=== PATIENT | male | born 1985 | race Two or more races ===

== ENCOUNTER → 2017-10-25 | Outpatient (CLI) | payer BC ==
--- NOTE | 2017-10-25 15:34 | RAD ---
4 views of the lumbar spine Indication: Low back pain. Comparison study: Lumbar spine radiographs September 14, 2010 Discussion: No evidence of acute fracture or alignment abnormality is identified. There is diffuse mild degenerative disc space narrowing throughout the visualized lumbar spine. There is grade 1 retrolisthesis of L4 on L5 in the neutral position. Mild facet arthrosis appears to be present inferiorly. No evidence of spondylolysis is appreciated. Findings are somewhat prominent for age. Impression: Degenerative changes of the lumbar spine as described without evidence of acute osseous abnormality.
== END | disposition home or self-care (01) ==
LOC: DXRAD 14:43
PROVIDERS: ATTEND Nurse Practitioner Adult Health
DX: M47.896 Other spondylosis, lumbar region (principal); M48.061 Spinal stenosis, lumbar region without neurogenic claudication
CPT/HCPCS: 72100

== ENCOUNTER → 2017-11-08 | Outpatient (CLI) | payer BC ==
[~2017-11-08] MED LIST: IOHEXOL 240 MG/ML 50ML VIAL. ONE; IOHEXOL 300 MG/ML 50 ML VIAL. IV ONE
--- NOTE | 2017-11-08 13:08 | RAD ---
CT of the abdomen and pelvis with IV and oral contrast 11/08/2017 Indication: Left lower quadrant pain x1 week. Bloating. Gas. Comparison study: None available. Technique: Multidetector CT imaging of the abdomen and pelvis is obtained following the administration of IV and enteric contrast. There is a smoothly marginated ovoid nodule in the basilar right lower lobe measuring 1.8 cm in diameter (axial image 21). There is a 2 to 3 mm noncalcified nodule in the inferior left upper lobe (axial image 5). The liver is diffusely low in attenuation suggesting hepatic steatosis. Liver is otherwise unremarkable. Prior cholecystectomy is noted. Spleen is top normal in size. Adrenal glands are unremarkable. Pancreas is grossly unremarkable. The kidneys are unremarkable. There is no evidence of bowel obstruction. No evidence of acute inflammatory change involving the visualized bowel is identified. The appendix is unremarkable in appearance the bladder is predominantly decompressed but otherwise grossly unremarkable. No free fluid or free air seen in the abdomen or pelvis. No evidence of acute osseous abnormality is identified. Impression: 1. 1.8 cm noncalcified rounded nodule in the basal right lower lobe. 3 mm noncalcified nodule, inferior left upper . Consider CT of the chest for evaluation of pulmonary nodules. Otherwise recommend stratification based on risk factors and CT surveillance as described below . 2. No CT evidence of acute intra-abdominal abnormality 3. Hepatic steatosis PQRS Compliance Statement: One or more of the following individualized dose reduction techniques were utilized for this examination: 1. Automated exposure control 2. Adjustment of the mA and/or kV according to patient size 3. Use of iterative reconstruction technique Fleischner society pulmonary nodule recommendations 2017 guidelines Solid nodules Solitary nodule size: <6 mm low risk patients: no follow-up needed high risk patients: optional CT at 12 months Solitary nodule size: 6-8 mm low risk patients: follow-up at 6-12 months, then consider further follow-up at 18-24 months high risk patients: initial follow-up CT at 6-12 months and then at 18-24 months if no change Solitary nodule size: >8 mm either low or high risk patients consider follow-up CT at 3 months, and/or CT-PET, and/or biopsy Multiple nodules size: <6 mm low risk patients: no routine follow-up high risk patients: optional CT at 12 months Multiple nodules size: 6-8 mm low risk patients: follow-up at 3-6 months, then consider further follow-up at 18-24 months high risk patients: follow-up at 3-6 months, then at 18-24 months if no change Multiple nodules size: >8 mm low risk patients: follow-up at 3-6 months, then consider further follow-up at 18-24 months high risk patients: follow-up at 3-6 months, then at 18-24 months if no change Note: newly detected indeterminate nodule in persons 35 years of age or older. Low risk patients: minimal or absent history of smoking and or other known risk factors high risk patients: history of smoking or of other known risk factors (e.g. first degree relative with lung cancer, or exposure to asbestos, radon, uranium) nodule up to 8 mm is partly solid or is ground glass further follow-up is required after 24 months to exclude possible slow growing adenocarcinoma (NEGRA)
== END | disposition home or self-care (01) ==
LOC: CT 07:47
PROVIDERS: ATTEND Nurse Practitioner Adult Health
DX: K76.0 Fatty (change of) liver, not elsewhere classified (principal); R91.8 Other nonspecific abnormal finding of lung field; I10 Essential (primary) hypertension
CPT/HCPCS: 74177; Q9966; Q9967

== ENCOUNTER → 2017-11-15 | Outpatient (CLI) | payer BC ==
[~2017-11-15] MED LIST changes: -IOHEXOL 240 MG/ML 50ML VIAL. ONE; -IOHEXOL 300 MG/ML 50 ML VIAL. IV ONE; +IOHEXOL 300 MG/ML 75 ML VIAL. IV ONE
--- NOTE | 2017-11-15 13:58 | RAD ---
CT chest with contrast 11/15/2017 Clinical indication: Pulmonary nodules. COMPARISON: CT abdomen and pelvis 11/08/2017 TECHNIQUE: Multiple CT images of the chest were obtained following intravenous administration of 100 mL Omnipaque 300. *One or more of the following individualized dose reduction techniques were utilized for this examination: 1. Automated exposure control. 2. Adjustment of the mA and/or kV according to patient size. 3. Use of iterative reconstruction technique. FINDINGS: Heart size is normal without giving pericardial effusion. The thoracic aorta is normal in caliber. There is residual thymic tissue in the anterior mediastinum. No axillary, mediastinal or hilar lymphadenopathy. The central airways are patent. No no pleural effusion or pneumothorax. There is a stable 1.6 cm noncalcified nodule in the posterior basilar right lower lobe series 4/image 180. No additional noncalcified pulmonary nodules. There are no destructive osseous lesions. Limited images of the upper abdomen: Hepatic steatosis. Prior cholecystectomy. IMPRESSION: 1. Stable solitary noncalcified nodule measuring 1.6 cm in the posterior right lower lobe, indeterminate. PET/CT or percutaneous biopsy is recommended for further evaluation. 2. No other pulmonary nodules or thoracic lymphadenopathy. 3. Hepatic steatosis. Electronically signed by: Jaspal Keen MD (11/15/2017 1:55 PM) [id number]
== END | disposition home or self-care (01) ==
LOC: CT 07:46
PROVIDERS: ATTEND Nurse Practitioner Adult Health
DX: R91.8 Other nonspecific abnormal finding of lung field (principal); K76.0 Fatty (change of) liver, not elsewhere classified; Z90.49 Acquired absence of other specified parts of digestive tract
CPT/HCPCS: 71260; Q9967

== ENCOUNTER → 2018-02-14 | Outpatient (CLI) | payer BC ==
--- NOTE | 2018-02-14 10:45 | RAD ---
CT CHEST WO CONTRAST Indication: FOLLOW UP LUNG NODULE IN RIGHT LOWER LOBE Exposure: One or more of the following individualized dose reduction techniques were utilized for this examination: 1. Automated exposure control 2. Adjustment of the mA and/or kV according to patient size 3. Use of iterative reconstruction technique. Comparison: November 15, 2017 Contrast: None FINDINGS: Vascular structures: Limited exam without contrast. No evidence of thoracic aortic aneurysm. Lymph nodes:No significant enlargement Thyroid gland:Visualized aspect is unremarkable. Heart: No significant pericadial effusion. Esophagus: Unremarkable Pleural spaces: No significant effusion Lungs: Noncalcified nodule in the posterior right lower lobe measures 17 mm x 12 mm, series 2, image 261. Measures 17 mm x 12 mm on similar prior slice, with no interval change in appearance. Trachea and central airways: Patent Spine: Mild degenerative spondylosis Bones: No destructive process Upper abdomen: Slices obtained through the upper most abdomen are limited by the noncontrast technique. Hepatic steatosis. Impression: 1. Stable right lower lobe pulmonary nodule. 2. No acute findings in the chest. Electronically signed by: Cam Lozano MD (02/14/2018 10:41 AM) [id number]
== END | disposition home or self-care (01) ==
LOC: CT 10:04
PROVIDERS: ATTEND Internal Medicine Pulmonary Disease
DX: R91.1 Solitary pulmonary nodule (principal); K76.0 Fatty (change of) liver, not elsewhere classified; M47.894 Other spondylosis, thoracic region; I10 Essential (primary) hypertension; Z90.49 Acquired absence of other specified parts of digestive tract
CPT/HCPCS: 71250

== ENCOUNTER → 2018-09-25 | Outpatient (CLI) | payer BC ==
--- NOTE | 2018-09-25 10:50 | RAD ---
Two-view chest dated 09/25/2018. CT chest dated 02/14/2018. Clinical data indication: Productive cough for 24 hours. FINDINGS: PA and lateral views obtained. Heart and mediastinal contours within normal limits. Lungs are clear without focal consolidation. Vascular interstitium within normal limits. No pleural effusion or pneumothorax. Previously described nodular density in the right lower lobe is not well visualized based on technique but probably unchanged. IMPRESSION: 1. No acute radiographic abnormality. 2. Previously described right lower lobe pulmonary nodules not well visualized on today's exam but probably unchanged. Electronically signed by: Cam Wadr MD (09/25/2018 10:47 AM) [id number]
== END | disposition home or self-care (01) ==
LOC: RAD 10:25
PROVIDERS: ATTEND Nurse Practitioner Adult Health
DX: R06.02 Shortness of breath (principal); R05 Cough; R91.8 Other nonspecific abnormal finding of lung field
CPT/HCPCS: 71046

== ENCOUNTER → 2019-10-07 | Outpatient (CLI) | payer SELFPAY ==
[2019-10-07 19:45] LABS: BASO # 0.1 x10^3/uL (0.0-0.2); BASO % 1 % (0-3); EOS # 0.2 x10^3/uL (0.0-0.7); EOS % 2 % (0-3); HEMATOCRIT 44.7 % (39.0-53.0); HEMOGLOBIN 15.1 g/dL (13.0-17.5); LYMPH # 2.8 x10^3/uL (1.0-4.8); LYMPH % 25 % (24-48); MEAN CORPUSCULAR HEMOGLOBIN 29 pg (25-35); MEAN CORPUSCULAR HGB CONC 34 g/dL (31-37); MEAN CORPUSCULAR VOLUME 85 fL (79-100); MONO # 0.8 x10^3/uL (0.0-1.1); MONO % 7 % (0-9); NEUT # 7.5 x10^3uL (1.8-7.7); NEUT % 65 % (31-73); PLATELET COUNT 233 x10^3/uL (140-400); RED BLOOD COUNT 5.27 x10^6/uL (4.30-5.70); WHITE BLOOD COUNT 11.4 x10^3/uL (4.0-11.0)
[2019-10-07 20:04] LABS: C REACTIVE PROTEIN 4.7 mg/L (0-3.3); CALCIUM 8.9 mg/dL (8.5-10.1); CREATININE 0.8 mg/dL (0.7-1.3); POTASSIUM 3.6 mmol/L (3.5-5.1)
[2019-10-07 22:01] LABS: SEDIMENTATION RATE 12 (0-15)
== END | disposition home or self-care (01) ==
LOC: LAB 18:16
PROVIDERS: ATTEND Family Medicine
DX: L02.414 Cutaneous abscess of left upper limb (principal)
CPT/HCPCS: 36415; 80048; 85025; 85651; 86140

== ENCOUNTER 2021-07-18 11:18 | Emergency (ER) | payer SELFPAY ==
[~2021-07-18] VITALS: Ht 193 cm; Wt 203.1 kg
[2021-07-18] MEDS ORDERED: ACETAMINOPHEN 500 MG TABLET PO ONE (12:00)
[2021-07-18] MEDS ORDERED: IBUPROFEN 600 MG TABLET. PO ONE (12:00)
--- NOTE | 2021-07-18 12:06 | PHYS DOC ---
Past History Additional Past Medical Histor: obese Past Surgical History: Cholecystectomy, Other Additional Past Surgical Histo: ACL REPAIR RIGHT KNEE; LEFT ELBOW STAPH; RIGHT TESTICLE; LEFT ANKLE Alcohol Use: Rarely General Adult EDM: Chief Complaint: SHORTNESS OF BREATH HPI: HPI: Patient is a 35-year-old male who presents to the emergency department for shortness of breath that started last night. Patient was diagnosed with COVID- 19 last week. He is also reporting fevers, nonproductive cough, body aches and a headache. He rates his pain 4-10. No treatment prior to arrival. Patient denies any chest pain currently. Patient has a history of hypertension and obesity. Patient is mildly tachycardic in the emergency department but not hypoxic, he is febrile. Review of Systems: Review of Systems: 14 body systems of the review of systems have been reviewed. See HPI for pertinent positive and negative responses, otherwise all other systems are negative, nonpertinent or noncontributory Current Medications: Current Meds: Current Medications Medications (Trade) Dose Ordered Sig/Char Start Time Stop Time Status Last Admin Dose Admin Acetaminophen (Tylenol) 1,000 mg 1X ONCE 07/18/21 12:00 07/18/21 12:01 DC Ibuprofen (Motrin) 600 mg 1X ONCE 07/18/21 12:00 07/18/21 12:01 DC Allergies: Allergies: Allergies Coded Allergies Type Severity Reaction Last Updated Verified Penicillins Allergy Unknown Unknown 07/18/21 Yes Sulfa (Sulfonamide Antibiotics) Allergy Unknown Unknown 07/18/21 Yes Physical Exam: PE: Constitutional: Well developed, well nourished, no acute distress, non-toxic appearance. [] HENT: Normocephalic, atraumatic, bilateral external ears normal, oropharynx moist, no oral exudates, nose normal. [] Eyes: PERRL, EOMI, conjunctiva normal, no discharge. [] Neck: Normal range of motion, no tenderness, supple, no stridor. [] Cardiovascular:Heart rate tachycardic rhythm, no murmur [] Lungs & Thorax: Bilateral breath sounds clear to auscultation [] Abdomen: Bowel sounds normal, soft, no tenderness, no masses, no pulsatile masses. [] Skin: Warm, dry, no erythema, no rash. [] Back: Normal range of motion Extremities: No tenderness, no cyanosis, no clubbing, ROM intact, no edema. [] Neurologic: Alert and oriented X 3, normal motor function, normal sensory function, no focal deficits noted. [] Psychologic: Affect normal, judgement normal, mood normal. [] Current Patient Data: Vital Signs: Vital Signs Date Time Temp Pulse Resp B/P (MAP) Pulse Ox O2 Delivery O2 Flow Rate FiO2 07/18/21 11:54 100.1 105 17 152/92 (112) 93 Room Air EKG: EKG: [] Radiology/Procedures: Radiology/Procedures: []REASON: soa covid + PROCEDURE: PORTABLE CHEST 1V EXAMINATION: Chest radiograph. VIEWS: Single AP view of the chest COMPARISON: 09/25/2018 INDICATION:35 years, Male, shortness of air, Covid positive. FINDINGS: Normal cardiomediastinal silhouette. Patchy bibasilar opacities, slightly greater in the left. No pleural effusion or pneumothorax. No acute osseous process. IMPRESSION: Patchy bibasilar airspace opacities, consistent with known COVID pneumonia. Electronically signed by: Rox Castro DO (07/18/2021 12:23 PM) [id number] DICTATED AND SIGNED BY: ROX CASTRO DO DATE: 07/18/21 1221 CC: DARRION PRITCHARD MD; FABRICIO MACIEL APRN ~MTH0 0 Heart Score: C/O Chest Pain: No Risk Factors: Risk Factors: DM, Current or recent (<one month) smoker, HTN, HLP, family history of CAD, obesity. Risk Scores: Score 0 - 3: 2.5% MACE over next 6 weeks - Discharge Home Score 4 - 6: 20.3% MACE over next 6 weeks - Admit for Clinical Observation Score 7 - 10: 72.7% MACE over next 6 weeks - Early Invasive Strategies Course & Med Decision Making: Course & Med Decision Making Pertinent Labs and Imaging studies reviewed. (See chart for details) [] Patient presents to the emergency department for shortness of breath breath x1 day after being diagnosed with Covid a week ago. Patient is mildly tachycardic but he is febrile in the emergency department and this was treated with Tylenol and ibuprofen. Patient is not hypoxic at this time. A chest x-ray was performed to rule out pneumonia. Chest x-ray does show pneumonia patient be treated with an antibiotic. Patient also discharged home with a ProAir inhaler to use for shortness of breath. Patient remains 96% on room air and his heart rate has improved to 96 bpm. Patient advised to purchase a pulse oximeter and monitor oxygen saturations at home. Patient advised to perform symptomatic treatment. I discussed with patient all findings and diagnostic testing as well as the need to follow-up with PCP for further evaluation and treatment or return to the ER if any new or worsening symptoms. Strict return precautions were also discussed at length. Patient voiced understanding and agreement with the plan. Patient is hemodynamically stable at the time of disposition. Dragon Disclaimer: [employer] Disclaimer: This electronic medical record was generated, in whole or in part, using a voice recognition dictation system. Departure Departure: Impression: Primary Impression: Pneumonia due to COVID-19 virus Disposition: HOME / SELF CARE / HOMELESS Condition: GOOD Referrals: DARRION PRITCHARD MD (PCP) Patient Instructions: Pneumonia, Adult Additional Instructions: You are seen in the emergency department for shortness of breath with COVID-19. You have Covid pneumonia, this will be treated with an antibiotic. Please start and finish the antibiotic completely. For any pain or fevers please take Tylenol and/or ibuprofen. You are also being discharged home with an albuterol inhaler that you can use when you become short of breath. Please purchase a pulse oximeter and monitor your oxygen saturations at home. Please return to the emergency department if your oxygen saturation drops below 90%. Increase your fluids and rest. Follow-up with your primary care provider tomorrow regarding your ER visit. Please return to the emergency department if you develop hypoxia, increased shortness of breath, chest pain, high fevers refractory to treatment, intractable nausea or vomiting, confusion, severe weakness. Scripts Albuterol Sulfate (PROAIR HFA INHALER) 8.5 Gm Hfa.aer.ad 2 PUFF IH PRN Q4-6HRS PRN for wheezing for 21 Days, #1 INHALER 0 Refills as needed for wheezing Prov: FABRICIO MACIEL APRN 07/18/21 Azithromycin (AZITHROMYCIN TABLET) 250 Mg Tablet 1 PKG PO UD for pneumonia for 5 Days, #6 TAB 0 Refills 2 the first day followed by 1 for days 2-5 Prov: FABRICIO MACIEL APRN 07/18/21 FABRICIO MACIEL APRN Jul 18, 2021 12:05
--- NOTE | 2021-07-18 12:25 | RAD ---
EXAMINATION: Chest radiograph. VIEWS: Single AP view of the chest COMPARISON: 09/25/2018 INDICATION:35 years, Male, shortness of air, Covid positive. FINDINGS: Normal cardiomediastinal silhouette. Patchy bibasilar opacities, slightly greater in the left. No ple ural effusion or pneumothorax. No acute osseous process. IMPRESSION: Patchy bibasilar airspace opacities, consistent with known COVID pneumonia. Electronically signed by: Segundo Cedeno DO (07/18/2021 12:23 PM) [id number]
[2021-07-18] MEDS ORDERED: AZIT250T6 PO (12:31)
[2021-07-18] MEDS ORDERED: ALBU2.5V8 IH (12:31)
[2021-07-18 12:58] VITALS: BP 165/88
== END 2021-07-18 13:05 | disposition home or self-care (01) ==
LOC: ER 11:18
DX: U07.1 COVID-19 (principal); J12.82 Pneumonia due to coronavirus disease 2019; Z88.0 Allergy status to penicillin; Z88.2 Allergy status to sulfonamides
CPT/HCPCS: 71045; 99283

== ENCOUNTER 2021-10-12 14:05 | Emergency (ER) | payer BC ==
[~2021-10-12] VITALS: Ht 193 cm; Wt 203.1 kg
[~2021-10-12 14:05] MED LIST changes: +ALBU2.5V8 IH; +AZIT250T6 PO; -IOHEXOL 300 MG/ML 75 ML VIAL. IV ONE
[2021-10-12 14:24] VITALS: BP 165/88
[2021-10-12] MEDS ORDERED: traMADol 50 MG TABLET PO ONE (14:45)
[2021-10-12] MEDS ORDERED: CEPHALEXIN 250 MG CAPSULE PO ONE (14:45)
--- NOTE | 2021-10-12 14:51 | PHYS DOC ---
Past History Additional Past Medical Histor: obese, cellulitis (RODOLFO MEHTA) Past Surgical History: Cholecystectomy, Other Additional Past Surgical Histo: ACL REPAIR RIGHT KNEE; LEFT ELBOW STAPH; RIGHT TESTICLE; LEFT ANKLE (RODOLFO MEHTA) Alcohol Use: Rarely (RODOLFO MEHTA) General Adult EDM: Chief Complaint: ABSCESS HPI: HPI: Patient is a 36 year old male with frequent cellulitis who presents with 2 areas of erythema on the right thigh. Patient states that he first noticed 1 bump on Sunday, which he began treating with topical steroid cream and cleaning with Hibiclens. Last night, the area of erythema was significantly larger and he noticed a second bump superiorly. Today is the first day he has felt associated chills, but denies measured fever or fatigue. (RODOLFO MEHTA) Review of Systems: Review of Systems: ROS negative or noncontributory except as mentioned in HPI. (RODOLFO MEHTA) Allergies: Allergies: Allergies Coded Allergies Type Severity Reaction Last Updated Verified Penicillins Allergy Unknown Unknown 07/18/21 Yes Sulfa (Sulfonamide Antibiotics) Allergy Unknown Unknown 07/18/21 Yes (RODOLFO MEHTA) Physical Exam: PE: Constitutional: Morbidly obese, no acute distress, non-toxic appearance. HENT: Normocephalic, atraumatic, bilateral external ears normal, nose normal. Eyes: EOMI, conjunctiva normal, no discharge. Neck: Normal range of motion, no stridor. Skin: Right lateral mid thigh with 8 cm circumference erythema and central induration, additional 3 cm circumference erythema with central induration, no fluctuance appreciated in either, both exquisitely tender. Skin otherwise warm, dry, no erythema, no rash. Extremities: No cyanosis, no clubbing, ROM intact, no edema. Neurologic: Alert and oriented x4, normal motor function, normal sensory function, no focal deficits noted. (RODOLFO MEHTA) Current Patient Data: Vital Signs: Vital Signs Date Time Temp Pulse Resp B/P (MAP) Pulse Ox O2 Delivery O2 Flow Rate FiO2 10/12/21 14:24 99.2 94 16 165/88 (113) 99 Room Air (RODOLFO MEHTA) Heart Score: C/O Chest Pain: No (RODOLFO MEHTA) Course & Med Decision Making: Course & Med Decision Making Pertinent Labs and Imaging studies reviewed. (See chart for details) Patient is a 36-year-old male with recurrent cellulitis who presents today with an additional episode. Patient reports that he is typically prescribed Keflex, which often resolves the infection. Patient's primary care provider is Dr. Palma. Patient will be initiated on Keflex treatment today and instructed to follow-up with Dr. Palma in the next few days to evaluate progress. At that time, if infection is not improving, antibiotic treatment can be switched. I&D deferred today, as there is no palpable fluctuance to drain. Patient questions were answered. Return precautions were provided. Patient understands and is agreeable to discharge plan. (RODOLFO MEHTA) Dragon Disclaimer: Dragon Disclaimer: This electronic medical record was generated, in whole or in part, using a voice recognition dictation system. (RODOLFO MEHTA) Departure Departure: Impression: Primary Impression: Cellulitis of right thigh Additional Impression: History of recurrent infection Disposition: 01 HOME / SELF CARE / HOMELESS Condition: STABLE Referrals: NUVIA PALMA MD (PCP) Patient Instructions: Cellulitis, [id number] Additional Instructions: EMERGENCY DEPARTMENT GENERAL DISCHARGE INSTRUCTIONS Thank you for coming to [facility] (ED) today and trusting us with you care. We trust that you had a positive experience in our Emergency Department. If you wish to speak to the department management, you may call the director at [phone]. YOUR FOLLOW UP INSTRUCTIONS ARE FOLLOWS: 1. Follow up with your primary care doctor in the next couple of days. If you do not have a primary doctor, please ask for a resource list of physicians or clinics that may be able to assist you with follow up care. 2. The emergency provider has interpreted your imaging studies, if any were ordered. The radiology distribution specialist also reviewed them. If there is a change in the findings, you will be notified in 48 hours when at all possible. 3. If a lab test or culture has been done, your results will be reviewed and yo u will be notified if you need a change in treatment. 4. Follow instructions verbalized to you and refer to the printouts if needed. ADDITIONAL INSTRUCTIONS AND INFORMATION: 1. Your care today has been supervised by a physician who is specially trained in emergency care. Many problems require more than one evaluation for a complete diagnosis and treatment. We recommend that you schedule your follow up appointment as recommended to ensure complete treatment of you illness or injury. If you are unable to obtain follow up care and continue to have a problem, or if your condition worsens, we recommend that you return to the ED. 2. We are not able to safely determine your condition over the phone nor are we able to give sound medical advice over the phone. For these safety reasons, if you call for medical advice we will ask you to come to the ED for further evaluation. 3. If you have any questions regarding these discharge instructions please call the ED at [phone]. SAFETY INFORMATION: In the interest of safety, wellness, and injury prevention; we encourage you to wear your seat belt, if you smoke; quite smoking, and we encourage family to use a protective helmet for bicycling and other sporting events that present an increased risk for head injury. IF YOUR SYMPTOMS WORSEN OR NEW SYMPTOMS DEVELOP, OR YOU HAVE CONCERNS ABOUT YOUR CONDITION; OR IF YOUR CONDITION WORSENS WHILE YOU ARE WAITING FOR YOUR FOLLOW UP APPOINTMENT; EITHER CONTACT YOUR PRIMARY CARE DOCTOR, THE PHYSICIAN WHOSE NAME AND NUMBER YOU WERE GIVEN, OR RETURN TO THE ED IMMEDIATELY. Scripts Tramadol Hcl (TRAMADOL HCL) 50 Mg Tablet 50 MG PO PRN Q6HRS PRN for PAIN, #15 TAB Prov: RODOLFO MEHTA 10/12/21 Cephalexin (KEFLEX) 500 Mg Capsule 1 CAP PO TID for cellulitis for 10 Days, #29 CAP Prov: RODOLFO MEHTA 10/12/21 Attending Signature Attending Signature I have reviewed the PA/DIRECTOR OPERATIONS BROADCAST's note and plan of care. I was available for consultation as needed during the patient's visit in the emergency department. I agree with the clinical impression, plan, and disposition. (JANET BROWER DO) RODOLFO MEHTA Oct 12, 2021 14:51 JANET BROWER DO Oct 13, 2021 06:46
[2021-10-12] MEDS ORDERED: CEPH500C PO (15:10)
[2021-10-12] MEDS ORDERED: TRAM50TA PO (15:10)
== END 2021-10-12 15:32 | disposition home or self-care (01) ==
LOC: ER 14:05
DX: L03.115 Cellulitis of right lower limb (principal); E66.01 Morbid (severe) obesity due to excess calories; Z68.43 Body mass index [BMI] 50.0-59.9, adult; Z88.0 Allergy status to penicillin; Z88.2 Allergy status to sulfonamides
CPT/HCPCS: 99283